=== PATIENT | female | born 1990 | race Caucasian/White ===

== ENCOUNTER 2020-05-23 09:26 | Inpatient (IN) | payer BC, OTHER ==
[~2020-05-23] VITALS: Ht 157.5 cm; Wt 75.7 kg
[2020-05-23 10:16] LABS: HEMOGLOBIN 11.6 gm/dl (12.3-15.3); RED BLOOD COUNT 4.17 M/UL (4.00-5.10); WHITE BLOOD COUNT 11.2 K/UL (4.5-11.0)
[2020-05-23] MEDS ORDERED: DOCUSATE SODIU100 MG PO (11:43)
[2020-05-23] MEDS ORDERED: HYDROCODON-ACE1 EAC4 PO (11:43)
[2020-05-23] MEDS ORDERED: IBUPROFEN600 MG PO (11:43)
[2020-05-24 04:55] LABS: HEMOGLOBIN 8.8 gm/dl (12.3-15.3)
== END 2020-05-24 15:00 | disposition home or self-care (01) | DRG 788 ==
LOC: OB 09:26
PROVIDERS: ADMIT Obstetrics & Gynecology
PROC: 10H07YZ Insertion of Other Device into Products of Conception, Via Natural or Artificial Opening (ICD-10-PCS; 2020-05-23)
PROC: 10D00Z1 Extraction of Products of Conception, Low, Open Approach (ICD-10-PCS; principal; 2020-05-23 11:50)
DX: O75.82 Onset (spontaneous) of labor after 37 completed weeks of gestation but before 39 completed weeks gestation, with delivery by (planned) cesarean section (principal); Z3A.37 37 weeks gestation of pregnancy; Z37.0 Single live birth; Z83.3 Family history of diabetes mellitus; Z80.1 Family history of malignant neoplasm of trachea, bronchus and lung; O69.81X0 Labor and delivery complicated by cord around neck, without compression, not applicable or unspecified; Z28.21 Immunization not carried out because of patient refusal
CPT/HCPCS: 36415; 81001; 82800; 85014; 85018; 85025; C9113; J0690; J1100; J1170; J1200; J1885; J2274; J2405; J2590; J3010; J7120